=== PATIENT | female | born 1930 | race Caucasian/White ===

== ENCOUNTER 2017-10-28 10:00 | Observation (INO) | payer OTHER ==
--- NOTE | 2017-10-28 10:25 | EDPHY ---
H & P Stated Complaint: Sent by , low O2 sat, recent cold/cough. - Personal History Current Tetanus Diphtheria and Acellular Pertussis (TDAP): Yes - Medical/Surgical History Hx Asthma: Yes Hx Chronic Respiratory Disease: No Hx Diabetes: No Hx Cardiac Disease: No Hx Renal Disease: No Hx Cirrhosis: No Hx Alcoholism: No Hx HIV/AIDS: No Hx Splenectomy or Spleen Trauma: No Other PMH: Parkinsons, hypothyroidism, asthma, appy, choly - Social History Smoking Status: Never smoked Time Seen by Provider: 10/28/17 10:11 HPI/ROS: CHIEF COMPLAINT: "I have been sick for 1 week " HISTORY OF PRESENT ILLNESS: 87-year-old female arrives via private vehicle with her complaining of being sick with URI symptoms for the past 1 week , intermittently productive cough, dyspnea. She went to urgent care this morning and was referred to the ER after she was noted to have a pulse oxygenation of 84% on room air. No history of chronic pulmonary disease or home oxygen use. She did receive an influenza vaccination this season. She denies: Chest pain, abdominal pain, nausea, vomiting, nuchal rigidity, headache , dysphagia, odynophagia PRIMARY CARE PROVIDER:Dr. Mandie Dodson REVIEW OF SYSTEMS: A ten point review of systems was performed and is negative with the exception of the items mentioned in the HPI PAST MEDICAL & SURGICAL HISTORY: No history of COPD or chronic pulmonary disease. No cardiac history. SOCIAL HISTORY: Nonsmoker. . PHYSICAL EXAM (Prior to examination, patient consented to physical exam, hands were washed and my usual and customary physical exam procedures followed) 1) GENERAL: Well-developed, well-nourished, alert and oriented. Appears to be in no acute distress. 2) HEAD: Normocephalic, atraumatic 3) HEENT: Pupils equal, round, reactive to light bilaterally. Sclera anicteric. Nasopharynx, oropharynx, clear, no lesions. No tonsillar enlargement or exudate. Ears bilaterally with normal tympanic membranes. 4) NECK: Full range of motion, no meningeal signs. 5) LUNGS: Right basilar rales noted.. Mild end-expiratory wheeze. 6) HEART: Regular rate and rhythm, no murmur, no heave, no gallop. 7) ABDOMEN: No guarding, no rebound, no focal tenderness, 8) MUSCULOSKELETAL: Moving all extremities, no focal areas of tenderness, no obvious trauma. No peripheral edema or discoloration. 9) BACK: No CVA tenderness, no midline vertebral tenderness, no fluctuance, no step-off, no obvious trauma, no visual or palpable abnormality. 10) SKIN: No rash, no petechiae. 11) Psychiatric: Patient is oriented X 3, there is no agitation. DIFFERENTIAL DIAGNOSIS: In no particular include but limited to pneumonia, bronchitis, influenza (Reinier,Vitaliy Charla) Constitutional: Initial Vital Signs Temperature (C) 37 C 10/28/17 10:01 Heart Rate 81 10/28/17 10:01 Respiratory Rate 16 10/28/17 10:01 Blood Pressure 133/65 H 10/28/17 10:01 O2 Sat (%) 88 L 10/28/17 10:01 O2 Delivery Mode Nasal Cannula O2 (L/minute) 2 Allergies/Adverse Reactions: cephalexin [Cephalexin] Allergy (Severe, Verified 10/05/15 10:44) THROAT CLOSED acetaminophen [From Vicodin] Allergy (Intermediate, Verified 10/05/15 10:44) "CRAZY" hydrocodone bitartrate [From Vicodin] Allergy (Intermediate, Verified 10/05/15 10:44) "CRAZY" Home Medications: Medication Instructions Recorded Carbidopa/Levodopa 1 tab PO QID 10/28/17 [Carbidopa-Levodopa 25-100 Tab] Estradiol [Estrace Vaginal (*)] 1 gm VG SUWE@2100 10/28/17 Herbals/Supplements -Info Only 1 ea PO DAILY 10/28/17 Levothyroxine [Synthroid 112 mcg 112 mcg PO DAILY 10/28/17 (*)] Losartan Potassium [Cozaar 25 mg 25 mg PO DAILY 10/28/17 (*)] Sertraline HCl [Zoloft 50mg (*)] 50 mg PO DAILY 10/28/17 Triamcinolone 0.025% 1 brenda TP TID PRN 10/28/17 [Triamcinolone 0.025% Ointment (*)] guaiFENesin [Mucinex 600 MG (*)] 600 mg PO BID 10/28/17 Albuterol [Proventil Inhaler HFA 1 - 2 puffs IH Q4H #1 mdi 10/29/17 (*)] predniSONE 40 mg PO DAILY #8 tablet 10/29/17 Medical Decision Making - Diagnostics EKG Interpretation: 12 lead EKG is interpreted in [facility] by emergency department physician. It shows left bundle branch block that is not seen on a previous EKG in 2016. (Lorri Deleon) ED Course/Re-evaluation: 10:25 a.m.: Old medical records reviewed. Care of patient under supervision of secondary supervising physician Dr Deleon who also examined patient patient is currently hypoxemic in the mid to high 80s, improves with supplemental oxygen. Will obtain diagnostic studies and re-evaluate.. Consultation with hospitalist Angela, CT is pending at this time. Admit to Dr. Frankel. Will hold on antibiotics as the chest x-ray is negative for infiltrate at this time. Respiratory viral PCR pending. 1:58 p.m.: The patient's CT angiography is negative for pulmonary embolus or positive for left upper lobe infiltrate. She will be started on IV antibiotics. (Vitaliy Hills) I have evaluated and participated in the management of this patient. My co- signature indicates that I have reviewed this chart and that I agree with the findings and the plan of care as documented. My personal history and physical findings include: 87-year-old female with 1 week of productive cough and shortness of breath. She was hypoxic when evaluated at an urgent care earlier this morning. Her pulse ox on room air was reported to be 84%. On examination she has distant breath sounds and scattered wheezes. Heart is regular. Abdomen is soft and nontender. She is alert and appropriate. CT of the chest shows possible pneumonia. She will be admitted to the hospital for further evaluation and oxygen therapy. (Lorri Deleon) - Data Points Laboratory Results: Laboratory Results 10/28/17 10:45 10/28/17 10:45 Microbiology Results: MICROBIOLOGY 10/28/17 10:30 Nasal, Sinus - Anaerobic Tube/Swab Respiratory Panel (PCR) - Final No Organism Detected 10/28/17 10:45 Nasal, Sinus - Swab Respiratory Panel (PCR) - Final No Organism Detected Medications Given: Discontinued Medications Albuterol/Ipratropium (Duoneb) 3 ml IH EDNOW ONE Stop: 10/28/17 10:27 Last Admin: 10/28/17 10:48 Dose: 3 ml Albuterol/Ipratropium (Duoneb) 3 ml IH EDNOW ONE Stop: 10/28/17 13:06 Last Admin: 10/28/17 13:24 Dose: 3 ml Carbidopa/Levodopa (Sinemet) 1 tab PO QID BRIANNE Stop: 04/26/18 15:59 Last Admin: 10/29/17 12:27 Dose: 1 tab Enoxaparin Sodium (Lovenox) 40 mg SC DAILY BRIANNE Stop: 04/27/18 08:59 Last Admin: 10/29/17 08:06 Dose: 40 mg Levofloxacin/Dextrose (Levaquin 750 Mg (Premix)) 150 mls @ 100 mls/hr IV EDNOW ONE PRN Reason: Protocol Stop: 10/28/17 15:29 Last Admin: 10/28/17 14:48 Dose: 150 mls Levothyroxine Sodium (Synthroid) 112 mcg PO DAILY BRIANNE Stop: 04/27/18 08:59 Last Admin: 10/29/17 08:03 Dose: 112 mcg Losartan Potassium (Cozaar) 25 mg PO DAILY BRIANNE Stop: 04/27/18 08:59 Last Admin: 10/29/17 08:03 Dose: 25 mg Methylprednisolone Sodium Succinate (Solu-Medrol) 125 mg IVP EDNOW ONE Stop: 10/28/17 13:06 Last Admin: 10/28/17 13:24 Dose: 125 mg Prednisone (Prednisone) 40 mg PO DAILY [facility] Stop: 04/26/18 15:59 Last Admin: 10/29/17 09:15 Dose: 40 mg Sertraline HCl (Zoloft) 50 mg PO DAILY BRIANNE Stop: 04/27/18 08:59 Last Admin: 10/29/17 08:03 Dose: 50 mg Departure - Departure Disposition: [facility] Acute Clinical Impression: Hypoxia Pneumonia Qualifiers: Pneumonia type: due to unspecified organism Laterality: left Lung location: upper lobe of lung Qualified Code(s): J18.1 - Lobar pneumonia, unspecified organism Condition: Fair
[2017-10-28] MEDS ORDERED: IPRATROPIUM/ALBUTEROL 3 ML DEYVIAL IH ONE ×2 (10:26→13:05)
[2017-10-28 10:58] LABS: PLATELET COUNT 174 10^3/uL (150-400)
--- NOTE | 2017-10-28 12:24 | CPEKG ---
Heart Rate: 82 RR Interval: 732 P-R Interval: 200 QRSD Interval: 128 QT Interval: 408 QTC Interval: 477 P Lankin: 75 QRS Lankin: -75 T Wave Lankin: 84 EKG Severity - ABNORMAL ECG - EKG Impression: SINUS RHYTHM EKG Impression: VENTRICULAR PREMATURE COMPLEX EKG Impression: LEFT BUNDLE BRANCH BLOCK Electronically Signed By: Lorri Deleon 28-Oct-2017 14:56:01
[2017-10-28] MEDS ORDERED: IOPAMIDOL (ISOVUE 370) 100 ML BTL IV ONE (12:54)
[2017-10-28] MEDS ORDERED: methylPREDNISolone SOD SUCC 125 MG/2 ML VIAL IVP ONE (13:05)
--- NOTE | 2017-10-28 15:19 | PDGENHP ---
History and Physical - Chief Complaint Cough and shortness of breath - History of Present Illness This 87-year-old female who became ill with a cough about 1 week ago. She came to the emergency department due to worsening cough today. The cough is described as productive. It was associated with some shortness of breath. She denies any chest pain. She denies any fevers. She denies any body aches. History Information - Allergies/Home Medication List Allergies/Adverse Reactions: cephalexin [Cephalexin] Allergy (Severe, Verified 10/05/15 10:44) THROAT CLOSED acetaminophen [From Vicodin] Allergy (Intermediate, Verified 10/05/15 10:44) "CRAZY" hydrocodone bitartrate [From Vicodin] Allergy (Intermediate, Verified 10/05/15 10:44) "CRAZY" Home Medications: Losartan Potassium [Cozaar 25 mg (*)] 25 mg PO DAILY 10/28/17 [Last Taken ] RX: Carbidopa/Levodopa [Carbidopa-Levodopa 25-100 Tab] 1 tab PO QID 10/28/17 [ Last Taken 10/27/17] RX: Estradiol [Estrace Vaginal (*)] 1 gm VG SUWE@2100 10/28/17 [Last Taken Unknown] RX: Herbals/Supplements -Info Only 1 ea PO DAILY 10/28/17 [Last Taken Unknown] RX: Levothyroxine [Synthroid 112 mcg (*)] 112 mcg PO DAILY 10/28/17 [Last Taken 10/27/17] RX: Triamcinolone 0.025% [Triamcinolone 0.025% Ointment (*)] 1 brenda TP TID PRN [Last Taken Unknown] Sertraline HCl [Zoloft 50mg (*)] 50 mg PO DAILY 10/28/17 [Last Taken 10/27/17] guaiFENesin [Mucinex 600 MG (*)] 600 mg PO BID 10/28/17 [Last Taken 10/27/17] I have personally reviewed and updated: family history, medical history, social history, surgical history - Past Medical History Additional medical history: parkinsons disease, hypothyroidism, asthma - Surgical History Reports: appendectomy, cholecystectomy - Social History Smoking Status: Never smoked Alcohol Use: None Drug Use: None Review of Systems Review of Systems: ROS: 10pt was reviewed & negative except for what was stated in HPI & below Physical Exam Physical Exam: Temp Pulse Resp BP Pulse Ox 37 C 87 18 147/69 H 96 10/28/17 10:01 10/28/17 14:49 10/28/17 14:49 10/28/17 14:49 10/28/17 14:49 O2 (L/minute) 2 Constitutional: no apparent distress, appears nourished, not in pain Eyes: PERRL, anicteric sclera, EOMI Ears, Nose, Mouth, Throat: moist mucous membranes, hearing normal, ears appear normal, no oral mucosal ulcers Cardiovascular: regular rate and rhythym, no murmur, rub, or gallop, No edema Respiratory: no respiratory distress, reduced air movement, expiratory wheeze, No rhonchi Gastrointestinal: normoactive bowel sounds, soft, non-tender abdomen, no palpable masses Genitourinary: no bladder fullness, no bladder tenderness Musculoskeletal: full muscle strength, no muscle tenderness, normal joint ROM, no joint effusions Neurologic: AAOx3, CN II-XII Intact, No facial droop Psychiatric: interacting appropriately, not anxious, not encephalopathic, thought process linear Lymph, Heme, Immunologic: no cervical LAD, no supraclavicular LAD Lab Data & Imaging Review 10/28/17 10:45 10/28/17 10:45 WBC 11.34 10^3/uL (3.80-9.50) H 10/28/17 10:45 RBC 4.28 10^6/uL (4.18-5.33) 10/28/17 10:45 Hgb 14.4 g/dL (12.6-16.3) 10/28/17 10:45 Hct 42.5 % (38.0-47.0) 10/28/17 10:45 MCV 99.3 fL (81.5-99.8) 10/28/17 10:45 MCH 33.6 pg (27.9-34.1) 10/28/17 10:45 MCHC 33.9 g/dL (32.4-36.7) 10/28/17 10:45 RDW 12.9 % (11.5-15.2) 10/28/17 10:45 Plt Count 174 10^3/uL (150-400) 10/28/17 10:45 MPV 10.1 fL (8.7-11.7) 10/28/17 10:45 Neut % (Auto) 83.9 % (39.3-74.2) H 10/28/17 10:45 Lymph % (Auto) 7.8 % (15.0-45.0) L 10/28/17 10:45 Lynn % (Auto) 7.3 % (4.5-13.0) 10/28/17 10:45 Eos % (Auto) 0.4 % (0.6-7.6) L 10/28/17 10:45 Baso % (Auto) 0.2 % (0.3-1.7) L 10/28/17 10:45 Nucleat RBC Rel Count 0.0 % (0.0-0.2) 10/28/17 10:45 Absolute Neuts (auto) 9.52 10^3/uL (1.70-6.50) H 10/28/17 10:45 Absolute Lymphs (auto) 0.88 10^3/uL (1.00-3.00) L 10/28/17 10:45 Absolute Monos (auto) 0.83 10^3/uL (0.30-0.80) H 10/28/17 10:45 Absolute Eos (auto) 0.05 10^3/uL (0.03-0.40) 10/28/17 10:45 Absolute Basos (auto) 0.02 10^3/uL (0.02-0.10) 10/28/17 10:45 Absolute Nucleated RBC 0.00 10^3/uL (0-0.01) 10/28/17 10:45 Immature Gran % 0.4 % (0.0-1.1) 10/28/17 10:45 Immature Gran # 0.04 10^3/uL (0.00-0.10) 10/28/17 10:45 D-Dimer 0.87 ug/mLFEU (0.00-0.50) H 10/28/17 10:45 VBG Lactic Acid 1.0 mmol/L (0.7-2.1) 10/28/17 10:45 Sodium 141 mEq/L (134-144) 10/28/17 10:45 Potassium 4.6 mEq/L (3.5-5.2) 10/28/17 10:45 Chloride 103 mEq/L (97-110) 10/28/17 10:45 Carbon Dioxide 26 mEq/l (22-31) 10/28/17 10:45 Anion Gap 12 mEq/L (8-16) 10/28/17 10:45 BUN 17 mg/dL (7-23) 10/28/17 10:45 Creatinine 0.8 mg/dL (0.6-1.0) 10/28/17 10:45 Estimated GFR > 60 10/28/17 10:45 Glucose 101 mg/dL (70-100) H 10/28/17 10:45 Calcium 9.0 mg/dL (8.5-10.4) 10/28/17 10:45 Troponin I 0.052 ng/mL (0.000-0.034) H 10/28/17 10:45 Nasal Influenza A PCR NEGATIVE FOR FLU A (NEGATIVE) 10/28/17 10:45 Nasal Influenza B PCR NEGATIVE FOR FLU B (NEGATIVE) 10/28/17 10:45 Visualized and Interpreted imaging results: Yes Interpretation: Chest CT was reviewed: Impression: . 1. No pulmonary embolism to the segmental level. 2. Patchy left upper lobe ground glass opacities may be infectious and/or inflammatory. Recommend. follow up CT chest in 3 months to verify resolution. 3. Mucous plugging and/or debris in left anterior segmental and left lower lobar bronchi with. associated medial left upper lobe consolidation and/or atelectasis. 4. Nonspecific upper limit normal the mediastinal lymph nodes. 5. Stable bilateral adrenal nodules. Visualized and Interpreted EKG results: Yes EKG Interpretation: Positive for: left bundle branch block Assessment & Plan Assessment: This 87-year-old female presenting with: # Acute hypoxemic respiratory failure in the setting of recent URI most likely due to post infectious asthma doubtful acute pneumonia -placed observation -DuoNeb treatments -Mucinex -start prednisone -will monitor off of antibiotics for now # indeterminate troponin with new left bundle branch block on EKG without chest pain -trend trop
[2017-10-28] MEDS ORDERED: ONDANSETRON 4 MG/2 ML VIAL IVP PRN (15:50)
[2017-10-28] MEDS ORDERED: IPRATROPIUM/ALBUTEROL 3 ML DEYVIAL IH PRN (15:50)
[2017-10-28] MEDS ORDERED: TRIAMCINOLONE 0.025% 15 GM OINTTUBE TP PRN (15:55)
[2017-10-28] MEDS: CARBIDOPA/LEVODOPA 25 MG/100 MG TAB PO SCH ×2 (17:21→21:54)
[2017-10-28] MEDS: predniSONE 20 MG TAB PO SCH (17:38)
[2017-10-28 22:24] VITALS: TEMP 98.1
[2017-10-29] MEDS: CARBIDOPA/LEVODOPA 25 MG/100 MG TAB PO SCH ×2 (08:03→12:27)
[2017-10-29 08:05] VITALS: BP 136/66; PULSE 93; RESP 22
[2017-10-29 08:20] LABS: PLATELET COUNT 175 10^3/uL (150-400)
[2017-10-29] MEDS ORDERED: ENOXAPARIN 40 MG/0.4 ML SYR SC SCH (09:00)
[2017-10-29] MEDS ORDERED: LEVOTHYROXINE 112 MCG TAB PO SCH (09:00)
[2017-10-29] MEDS ORDERED: SERTRALINE HCL 50 MG TAB PO SCH (09:00)
[2017-10-29] MEDS ORDERED: LOSARTAN POTASSIUM 25 MG TAB PO SCH (09:00)
[2017-10-29] MEDS: predniSONE 20 MG TAB PO SCH (09:15)
[2017-10-29 09:18] VITALS: O2SAT 88
--- NOTE | 2017-10-29 09:28 | PDHOMEO2F ---
Home Oxygen Face to Face Home Orders: I certify that a physician or a nurse practitioner or physician's mortgage assistant has had a hivf-on-lryc encounter with this patient on the date of this order due to the diagnosis listed, which relates to the primary reason the patient requires home oxygen. Alternative treatments have been tried, or considered, and deemed ineffective. It is anticipated that supplemental oxygen will result in improvement with treatment. Home oxygen qualifying diagnosis: asthma exacerbation Home oxygen secondary diagnosis: bronchitis SpO2 on room air (%): 88 Frequency of home oxygen needed: continuous Home oxygen liters per minute: 2 Home oxygen delivery device: nasal cannula Concentrator: Yes E-tanks for mobility and back up: Yes If ordering portable O2, is the patient mobile in the home?: Yes I certify that, based on these findings, the home oxygen is medically necessary for this patient for the following length of time. Length of time home oxygen needed: 1 month
--- NOTE | 2017-10-29 09:56 | GDS ---
[f rep st] DISCHARGE SUMMARY DISCHARGE DIAGNOSES: 1. Acute hypoxemic respiratory failure in the setting of recent upper respiratory infection. 2. Asthma exacerbation. 3. Indeterminate troponin. HOSPITAL COURSE BY PROBLEM: Acute hypoxemic respiratory failure due to asthma exacerbation in the se tting of recent URI: The patient was placed on observation. Blood cultures were done as well as a r espiratory panel, PCR, which did not detect any pathogens. In the emergency department she was start ed on antibiotics for presumptive pneumonia. A procalcitonin was done which was low. She was starte d on prednisone. On hospital day #1, she is breathing comfortably. She states that she feels better and would like to go home. She has been afebrile. PHYSICAL EXAM: VITAL SIGNS: On day of discharge, blood pressure 136/66, pulse of 93, respiratory ra te 22. O2 saturation 88% on room air, 93% on 1.5. LUNGS: Clear. Slightly diminished at the bases. No wheezing or rales. ABDOMEN: Soft. EXTREMITIES: No edema. DISCHARGE MEDICATIONS: Please refer to discharge medication reconciliation in [facility] for details a s well as the preliminary list. New medications on hospital discharge: 1. Prednisone 40 mg daily for 4 more days. 2. Albuterol MDI 2 puffs q.4 hours p.r.n. wheezing. DISCHARGE INSTRUCTIONS: The patient will be discharged from the hospital where she should follow up with her primary care provider for routine hospital followup. Once again, she did have a left bundle branch block on her EKG, which is new. She denies any chest pain. We will defer further workup of coronary artery disease to her primary care provider. /[id number]/MODL
--- NOTE | 2017-10-29 13:50 | ASDISCHSUM ---
Discharge Information Plan Status:Home with Home Health Medically Cleared to Leave:10/28/2017 Discharge Date:10/29/2017 12:40 PM D/C Disposition:Home Health Service [facility] D/C Disposition:Home, Routine, Self-Care Projected Discharge Date:10/29/2017 12:40 PM Transportation at D/C:Family Discharge Delay Reason: Follow-Up Date:10/29/2017 12:40 PM Discharge Slot: Final Diagnosis: Placement Information Patient Contact Information Contact Name:ISRAEL Relationship: Address:[address] [place] Work Phone: [facility]:[place] Alternate Phone: [facility]/Zip Code:[place] [address] Email: Financial Information Financial Class:Medicare Advantage Plans Primary Plan Desc:[employer] MEDICARE ADV Primary Plan Number:[id number] Secondary Plan Desc: Secondary Plan Number: Assessment Information LACE LACE Acuity / Level of Care Answers: Was the patient admitted to hospital via the emergency department? Yes: Emergency dept visits in Answers: 1 last 6 months Score: 4 Date Signed: 10/28/2017 03:50 PM Electronically Signed By:Disha Bledsoe RN Case Management Discharge Plan Note Case Management Discharge Discharge Order Complete? Answers: Yes Patient to Obtain Answers: via Family Medications Transportation Arranged Answers: Family/Friends Family Notified Answers: Yes Notes: per perinatal instructor Comments Notes: 10/29/2017 Case Management Note Pt has Home O2 needs that repiratory therapy has addressed. Pt does not require any case management needs. Family to transport home. Date Signed: 10/29/2017 11:54 AM Electronically Signed By:Barbara Michaels RN Intervention Information
[2017-10-30] MEDS ORDERED: ESTRADIOL 42.5 GM CRTUBE VG SCH (21:00)
== END 2017-10-29 12:40 | disposition home or self-care (01) ==
LOC: F2N 16:54 → F1N 10-29 09:56
PROVIDERS: ADMIT Student in an Organized Health Care Education/Training Program; ATTEND Family Medicine
DX: J96.01 Acute respiratory failure with hypoxia (principal); J45.901 Unspecified asthma with (acute) exacerbation; R79.9 Abnormal finding of blood chemistry, unspecified; I44.7 Left bundle-branch block, unspecified; G20 Parkinson's disease; E03.9 Hypothyroidism, unspecified
CPT/HCPCS: 71020; 71275; 93005; 96374; 97165; 99285; G0378; G8987; J1650; J1956; J2930; Q9967

== ENCOUNTER 2018-04-28 10:26 | Emergency (ER) | payer OTHER ==
--- NOTE | 2018-04-28 12:05 | EDPHY ---
H & P Stated Complaint: SENT FROM FOR LOW O2 SAT, WENT THERE FOR SHINGLES Time Seen by Provider: 04/28/18 11:43 HPI/ROS: CHIEF COMPLAINT: Shingles HISTORY OF PRESENT ILLNESS: The patient is an 87-year-old female who presented to the urgent care for follow-up exam of her shingles. While she was there they had a low pulse oximeter reading of 80. The urgent care center sent her here for further evaluation. She denies shortness of breath or chest pain. She does have a history of asthma and states that she has baseline shortness of breath with exertion. No fevers. No cough. REVIEW OF SYSTEMS: Constitutional: denies: chills, fever, recent illness, recent injury EENTM: denies: blurred vision, double vision, nose congestion Respiratory: See HPI Cardiac: denies: chest pain, irregular heart rate, lightheadedness, palpitations Gastrointestinal/Abdominal: denies: abdominal pain, diarrhea, nausea, vomiting, blood streaked stools Genitourinary: denies: dysuria, frequency, hematuria, pain Musculoskeletal: denies: joint pain, muscle pain Skin: denies: lesions, rash, jaundice, bruising Neurological: denies: headache, numbness, paresthesia, tingling, dizziness, weakness Hematologic/Lymphatic: denies: blood clots, easy bleeding, easy bruising Immunologic/allergic: denies: HIV/AIDS, transplant EXAM: GENERAL: Well-appearing, well-nourished and in no acute distress. HEAD: Atraumatic, normocephalic. EYES: Pupils equal round and reactive to light, extraocular movements intact, sclera anicteric, conjunctiva are normal. ENT: TMs normal, nares patent, oropharynx clear without exudates. Moist mucous membranes. NECK: Normal range of motion, supple without lymphadenopathy or JVD. LUNGS: Breath sounds clear to auscultation bilaterally and equal. No wheezes rales or rhonchi. HEART: Regular rate and rhythm without murmurs, rubs or gallops. ABDOMEN: Soft, nontender, normoactive bowel sounds. No guarding, no rebound. No masses appreciated. BACK: No CVA tenderness, no spinal tenderness, step-offs or deformities EXTREMITIES: Normal range of motion, no pitting or edema. No clubbing or cyanosis. NEUROLOGICAL: Cranial nerves II through XII grossly intact. Normal speech, normal gait. 5/5 strength, normal movement in all extremities, normal sensation PSYCH: Normal mood, normal affect. SKIN: Shingles rash right upper shoulder region. Source: Patient Exam Limitations: No limitations - Personal History Current Tetanus/Diphtheria Vaccine: Yes Tetanus Vaccine Date: < 10 YEARS - Medical/Surgical History Hx Asthma: Yes Hx Chronic Respiratory Disease: No Hx Diabetes: No Hx Cardiac Disease: No Hx Renal Disease: No Hx Cirrhosis: No Hx Alcoholism: No Hx HIV/AIDS: No Hx Splenectomy or Spleen Trauma: No Other PMH: Parkinsons, hypothyroidism, asthma, appy, choly - Family History Significant Family History: No pertinent family hx - Social History Smoking Status: Never smoked Alcohol Use: Sober Drug Use: None Constitutional: Initial Vital Signs Temperature (C) 36.7 C 04/28/18 10:30 Heart Rate 81 04/28/18 10:30 Respiratory Rate 16 04/28/18 10:30 Blood Pressure 185/99 H 04/28/18 10:30 O2 Sat (%) 88 L 04/28/18 10:30 O2 Delivery Mode Room Air Allergies/Adverse Reactions: cephalexin [Cephalexin] Allergy (Severe, Verified 04/28/18 10:34) THROAT CLOSED acetaminophen [From Vicodin] Allergy (Intermediate, Verified 04/28/18 10:34) "CRAZY" hydrocodone bitartrate [From Vicodin] Allergy (Intermediate, Verified 04/28/18 10:34) "CRAZY" Home Medications: Medication Instructions Recorded Carbidopa/Levodopa 1 tab PO QID 10/28/17 [Carbidopa-Levodopa 25-100 Tab] Estradiol [Estrace Vaginal (*)] 1 gm VG SUWE@2100 10/28/17 Herbals/Supplements -Info Only 1 ea PO DAILY 10/28/17 Levothyroxine [Synthroid 112 mcg 112 mcg PO DAILY 10/28/17 (*)] Losartan Potassium [Cozaar 25 mg 25 mg PO DAILY 10/28/17 (*)] Sertraline HCl [Zoloft 50mg (*)] 50 mg PO DAILY 10/28/17 Triamcinolone 0.025% 1 brenda TP TID PRN 10/28/17 [Triamcinolone 0.025% Ointment (*)] guaiFENesin [Mucinex 600 MG (*)] 600 mg PO BID 10/28/17 Albuterol [Proventil Inhaler HFA 1 - 2 puffs IH Q4H #1 mdi 10/29/17 (*)] predniSONE 40 mg PO DAILY #8 tablet 10/29/17 Medical Decision Making ED Course/Re-evaluation: She will continue taking the valacyclovir and prednisone prescribed to her last week. She is not hypoxic and is saturating 96% well as in the room. She denies shortness of breath. No wheezing on exam or rhonchi. No fever. After much discussion with her and her we agreed not to do any diagnostic testing. She is feeling well and has normal vital signs here. He likely had a bear reading at the urgent care. We discussed indications for returning. Differential Diagnosis: Partial list of the Differential diagnosis considered include but were not limited to; shingles, asthma exacerbation, hypoxia and although unlikely based on the history and physical exam, I also considered sepsis, pneumonia, PE, acute coronary disease. I discussed these differential diagnoses and the plan with the patient as well as the usual and expected course. The patient understands that the diagnosis is provisional and that in medicine we are not always correct and that further workup is often warranted. Usual and customary warnings were given. All of the patient's questions were answered. The patient was instructed to return to the emergency department should the symptoms at all worsen or return, otherwise to followup with the physician as we discussed. Departure - Departure Disposition: Home, Routine, Self-Care Clinical Impression: Shingles rash Qualifiers: Herpes zoster complications: without complications Qualified Code(s): B02.9 - Zoster without complications Condition: Fair Instructions: Shingles (ED) Referrals: Mandie Dodson MD [Primary Care Provider] - As per Instructions
[2018-04-28 12:18] VITALS: BP 171/89
== END 2018-04-28 12:18 | disposition home or self-care (01) ==
DX: B02.9 Zoster without complications (principal); J45.909 Unspecified asthma, uncomplicated; G20 Parkinson's disease

== ENCOUNTER → 2018-05-02 | Outpatient (CLI) | payer OTHER | PROVIDERS: ATTEND Physician Assistant | DX: R13.10 Dysphagia, unspecified (principal); G20 Parkinson's disease | CPT/HCPCS: 92611-GN ==

== ENCOUNTER 2018-08-04 19:19 | Emergency (ER) | payer OTHER ==
--- NOTE | 2018-08-04 19:59 | EDPHY ---
H & P Time Seen by Provider: 08/04/18 19:32 HPI/ROS: Chief complaint. Cough HPI. 87-year-old female with cough for the last several weeks. Some wheezing today. Seen at urgent care and diagnosed with pneumonia and sent to the emergency department. Patient has no chest discomfort. She denies shortness of breath. No abdominal pain or vomiting or diarrhea. No unusual leg pain or swelling. No fever. ROS 10 systems were reviewed and negative with the exception of the elements mentioned in the history of present illness Past Medical/Surgical History: Parkinson's disease, hypothyroid, asthma, appendectomy, cholecystectomy Social History: Single, nonsmoker, no alcohol Smoking Status: Never smoked Physical Exam: General Appearance: Alert well-developed female mild distress vital signs significant for O2 saturation 90% on room Eyes: Pupils equal and round no pallor or injection. ENT, Mouth: Mucous membranes are moist. Respiratory: No retractions. Left lower lobe rales Cardiovascular: Regular rate and rhythm. Gastrointestinal: Abdomen is soft and nontender, no masses, bowel sounds normal. Neurological: Awake and alert, sensory and motor exams grossly normal. Skin: Warm and dry, no rashes. Musculoskeletal: Neck is supple nontender. Extremities symmetrical, full range of motion. Psychiatric: Patient is oriented X 3, there is no agitation. Constitutional: Initial Vital Signs Temperature (C) 36.5 C 08/04/18 19:24 Heart Rate 79 08/04/18 19:24 Respiratory Rate 16 08/04/18 19:24 Blood Pressure 173/82 H 08/04/18 19:24 O2 Sat (%) 90 L 08/04/18 19:24 O2 Delivery Mode Nasal Cannula O2 (L/minute) 2 Allergies/Adverse Reactions: cephalexin [Cephalexin] Allergy (Severe, Verified 04/28/18 10:34) THROAT CLOSED acetaminophen [From Vicodin] Allergy (Intermediate, Verified 04/28/18 10:34) "CRAZY" hydrocodone bitartrate [From Vicodin] Allergy (Intermediate, Verified 04/28/18 10:34) "CRAZY" Home Medications: Medication Instructions Recorded Carbidopa/Levodopa 1 tab PO QID 10/28/17 [Carbidopa-Levodopa 25-100 Tab] Estradiol [Estrace Vaginal (*)] 1 gm VG SUWE@2100 10/28/17 Herbals/Supplements -Info Only 1 ea PO DAILY 10/28/17 Levothyroxine [Synthroid 112 mcg 112 mcg PO DAILY 10/28/17 (*)] Losartan Potassium [Cozaar 25 mg 25 mg PO DAILY 10/28/17 (*)] Sertraline HCl [Zoloft 50mg (*)] 50 mg PO DAILY 10/28/17 Triamcinolone 0.025% 1 brenda TP TID PRN 10/28/17 [Triamcinolone 0.025% Ointment (*)] guaiFENesin [Mucinex 600 MG (*)] 600 mg PO BID 10/28/17 Albuterol [Proventil Inhaler HFA 1 - 2 puffs IH Q4H #1 mdi 10/29/17 (*)] predniSONE 40 mg PO DAILY #8 tablet 10/29/17 Azithromycin [Zithromax] 250 mg PO DAILY #6 tab 08/04/18 Medical Decision Making - Diagnostics Imaging Results: Chest x-ray reviewed by me shows left bronchus mucus plugging apparently and left lower lobe infiltrate Procedures: Sepsis workup IV Levaquin ED Course/Re-evaluation: Re-evaluation 8:45 p.m.. Patient is improved. Oxygen saturation 98% on room air Patient and family and I discussed imaging lab results. The patient would like to go home. We talked we discussed risks and benefits of this. We discussed treatment plan including criteria for return and importance of follow-up and further evaluation; she expresses understanding and agreement Differential Diagnosis: This appears to be pneumonia with some mucus plugging. Initial O2 saturation was low but actually after updrafts much improved. No evidence for sepsis. - Data Points Laboratory Results: Laboratory Results 08/04/18 19:45 08/04/18 19:45 08/04/18 08/04/18 08/04/18 19:45 19:45 19:45 WBC 5.76 10^3/uL 10^3/uL (3.80-9.50) RBC 4.73 10^6/uL 10^6/uL (4.18-5.33) Hgb 15.0 g/dL g/dL (12.6-16.3) Hct 45.7 % % (38.0-47.0) MCV 96.6 fL fL (81.5-99.8) MCH 31.7 pg pg (27.9-34.1) MCHC 32.8 g/dL g/dL (32.4-36.7) RDW 12.9 % % (11.5-15.2) Plt Count 232 10^3/uL 10^3/uL (150-400) MPV 10.2 fL fL (8.7-11.7) Neut % (Auto) 65.0 % % (39.3-74.2) Lymph % (Auto) 22.2 % % (15.0-45.0) Owsley % (Auto) 8.0 % % (4.5-13.0) Eos % (Auto) 3.8 % % (0.6-7.6) Baso % (Auto) 0.7 % % (0.3-1.7) Nucleat RBC Rel Count 0.0 % % (0.0-0.2) Absolute Neuts (auto) 3.74 10^3/uL 10^3/uL (1.70-6.50) Absolute Lymphs (auto) 1.28 10^3/uL 10^3/uL (1.00-3.00) Absolute Monos (auto) 0.46 10^3/uL 10^3/uL (0.30-0.80) Absolute Eos (auto) 0.22 10^3/uL 10^3/uL (0.03-0.40) Absolute Basos (auto) 0.04 10^3/uL 10^3/uL (0.02-0.10) Absolute Nucleated RBC 0.00 10^3/uL 10^3/uL (0-0.01) Immature Gran % 0.3 % % (0.0-1.1) Immature Gran # 0.02 10^3/uL 10^3/uL (0.00-0.10) PT 12.7 SEC SEC (12.0-15.0) INR 0.93 (0.83-1.16) APTT 28.3 SEC SEC (23.0-38.0) VBG Lactic Acid Sodium 138 mEq/L mEq/L (135-145) Potassium 4.6 mEq/L mEq/L (3.3-5.0) Chloride 100 mEq/L mEq/L (97-110) Carbon Dioxide 31 mEq/l mEq/l (22-31) Anion Gap 7 mEq/L L mEq/L (8-16) BUN 21 mg/dL mg/dL (7-23) Creatinine 0.7 mg/dL mg/dL (0.6-1.0) Estimated GFR > 60 Glucose 93 mg/dL mg/dL (70-100) Calcium 9.8 mg/dL mg/dL (8.5-10.4) Total Bilirubin 0.7 mg/dL mg/dL (0.1-1.4) 08/04/18 19:45 WBC RBC Hgb Hct MCV MCH MCHC RDW Plt Count MPV Neut % (Auto) Lymph % (Auto) Owsley % (Auto) Eos % (Auto) Baso % (Auto) Nucleat RBC Rel Count Absolute Neuts (auto) Absolute Lymphs (auto) Absolute Monos (auto) Absolute Eos (auto) Absolute Basos (auto) Absolute Nucleated RBC Immature Gran % Immature Gran # PT INR APTT VBG Lactic Acid 0.8 mmol/L mmol/L (0.7-2.1) Sodium Potassium Chloride Carbon Dioxide Anion Gap BUN Creatinine Estimated GFR Glucose Calcium Total Bilirubin Medications Given: Levofloxacin/Dextrose (Levaquin 750 Mg (Premix)) 150 mls @ 100 mls/hr IV EDNOW ONE PRN Reason: Protocol Stop: 08/04/18 21:39 Last Admin: 08/04/18 20:24 Dose: 150 mls Discontinued Medications Albuterol/Ipratropium (Duoneb) 3 ml IH EDNOW ONE Stop: 08/04/18 20:11 Last Admin: 08/04/18 20:24 Dose: 3 ml Departure - Departure Disposition: Home, Routine, Self-Care Clinical Impression: Pneumonia Qualifiers: Pneumonia type: due to unspecified organism Laterality: left Lung location: lower lobe of lung Qualified Code(s): J18.1 - Lobar pneumonia, unspecified organism Condition: Good Instructions: Community Acquired Pneumonia (ED) Additional Instructions: Albuterol inhaler using 2 puffs every 4-6 hours while awake for the next 2-3 days. This will help with you're breathing After 3 days may begin to decrease the inhaler to 1 puff in morning and 1 puff in the evening. Zithromax as antibiotic beginning tomorrow. Return over the weekend for worsening symptoms especially worsening breathing. Recheck with Dr. Dodson on Tuesday or Tuesday Referrals: Mandie Dodson MD [Primary Care Provider] - 2-3 days without fail Prescriptions: Azithromycin [Zithromax] 250 mg PO DAILY #6 tab
[2018-08-04 20:06] LABS: PLATELET COUNT 232 10^3/uL (150-400)
[2018-08-04] MEDS ORDERED: IPRATROPIUM/ALBUTEROL 3 ML DEYVIAL IH ONE (20:10)
[2018-08-04 20:32] LABS: INR 0.93 (0.83-1.16); PROTIME(PATIENT) 12.7 SEC (12.0-15.0)
[2018-08-04] MEDS ORDERED: ALBUTEROL INH PREPACK MDI TAKEHOME ONE (20:55)
[2018-08-04 22:39] VITALS: BP 112/76
== END 2018-08-04 22:37 | disposition home or self-care (01) ==
DX: J18.9 Pneumonia, unspecified organism (principal); J45.901 Unspecified asthma with (acute) exacerbation; G20 Parkinson's disease
CPT/HCPCS: 96365; 99284; J1956